=== PATIENT | female | born 1975 | race Caucasian/White ===

== ENCOUNTER 2016-04-25 22:15 | Emergency (ER) | payer OTHER ==
--- NOTE | 2016-04-26 08:58 | RAD ---
EXAMINATION:HAND-LEFT 3 VIEWS Clinical indication: Pain in the base of the middle and ring finger following injury. Initial encounter. Comparison: None Technique:3 views of the left hand were obtained. FINDINGS: There is a cortical irregularity of the articular surface of the proximal aspect of the middle phalanx of the third digit. This may reflect a small chip fracture of uncertain age. The remainder the osseous structures appear intact. The joint space relationships are maintained. No soft tissue abnormality is identified. IMPRESSION: Slight cortical irregularity of the proximal aspect of middle phalanx of the left third digit. This may reflect a small osteophyte of degenerative change or chip fracture of uncertain age. The remainder the osseous structures appear intact.
== END 2016-04-25 23:12 | disposition home or self-care (01) ==
LOC: ED 22:15
DX: S60.222A Contusion of left hand, initial encounter (principal); W21.03XA Struck by baseball, initial encounter; Y93.64 Activity, baseball; Y92.320 Baseball field as the place of occurrence of the external cause; Y99.8 Other external cause status